=== PATIENT | female | born 1975 | race Caucasian/White ===

== ENCOUNTER → 2016-10-20 | Outpatient (REF) | payer OTHER ==
[2016-10-20 14:07] LABS: BLOOD UREA NITROGEN 12 MG/DL (7-18); CREATININE FOR GFR 1.04 MG/DL (0.55-1.02); GLOMERULAR FILTRATION RATE > 60.0 (>58)
[2016-10-26 14:12] LABS: Lyme Disease IgG/IgM Antibodie <0.91 ISR (0.00-0.90); Lyme Disease IgM Ab Quantitati <0.80 index (0.00-0.79); SJOGREN'S ANTI SS-A <0.2 AI (0.0-0.9); SJOGREN'S ANTI SS-B <0.2 AI (0.0-0.9)
== END ==
LOC: M LABNEURO 12:38
PROVIDERS: ATTEND Psychiatry & Neurology Neurology
DX: G35 Multiple sclerosis (principal); N18.9 Chronic kidney disease, unspecified

== ENCOUNTER → 2016-12-29 | Outpatient (CLI) | payer OTHER ==
[~2016-12-29] MED LIST: LIDOCAINE 1% SDV INJ 30 ML VIAL As Ordered ONE; MIDAZOLAM INJ 2 MG/2 ML VIAL (J2250) As Ordered ONE; fentaNYL 100 MCG/2 ML INJECTION (J3010) As Ordered ONE
[2016-12-29 20:02] LABS: GLUCOSE CSF 52 MG/DL (40-75)
[2016-12-29 20:06] LABS: APPEARANCE, CSF CLEAR (CLEAR); COLOR, CSF COLORLESS (COLORLESS); CSF DIFF IF INDICATED? NO (NO); CSF TUBE# CELL CNT TUBE 3; RBC CSF AUTO 1 /mm3 (0-0); WBC CSF AUTO 1 /mm3 (0-10)
[2016-12-29 20:08] LABS: CSF DILUENT LOT # 6277
[2016-12-30 09:54] LABS: CSF GROUP B STREP NEGATIVE (NEGATIVE); CSF H. INFLUENZA NEGATIVE (NEGATIVE); CSF N MENINGITIDIS ACYW135 NEGATIVE (NEGATIVE); CSF STREP PNUEMO NEGATIVE (NEGATIVE)
--- NOTE | 2017-01-12 00:11 | ECWPNPC ---
PATIENT NAME: KASI GURROLA : 1975 GENDER: FEMALE VISIT DATE: 12/29/2016 DISCHARGE DATE: 12/29/16 1008 VISIT LOCKED DATE TIME: PHYSICIAN: ONEAL GONCALVES RESOURCE: ONEAL GONCALVES REASON FOR APPOINTMENT 1. SPINAL TAP MS PROTOCOL CURRENT MEDICATIONS TAKING KEPPRA 250 MG TABLET ORALLY BID TAKING LAMICTAL 100 MG TABLET 2 TABLETS ORALLY TWICE A DAY TAKING LEXAPRO 5 5 MG TABLET ORAL TAKING ATIVAN 0.5 0.5MG TABLET ORAL TAKING KLONOPIN 0.5 MG TABLET 1 TABLET ORALLY TWICE A DAY TAKING VALACYCLOVIR HCL 1 GM TABLET 2 TABLETS ORALLY EVERY 12 HRS NOT-TAKING FLUTICASONE PROPIONATE 50 MCG/ACT SUSPENSION 2 SPRAY IN EACH NOSTRIL NASALLY ONCE A DAY NOT-TAKING PSEUDOEPHEDRINE-GUAIFENESIN ER 60-600 MG TABLET EXTENDED RELEASE 12 HOUR 1 TABLET NEEDED ORALLY TWICE A DAY PAST MEDICAL HISTORY ANXIETY ALLERGIES LEVOQUIN: RASH: ALLERGY SULFA: RASH/SWELLING: ALLERGY VITAL SIGNS WT 146.6 LBS, HT 62 IN, BMI 26.81 INDEX, BP 113/71 MM HG, HR 60 /MIN, RR 18 /MIN, TEMP 99.0 F, OXYGEN SAT % 98%, NA INITIALS AW 1341. ASSESSMENTS MS PROTOCOL. TREATMENT OTHERS NOTES: SPINAL TAP WITH IV SEDATION - PLEASE SEE MEDITECH. DISPOSITION & COMMUNICATION FOLLOW UP CALL NEEDED/ FUP WITH NEUROLOGIST ELECTRONICALLY SIGNED BY ONEAL GONCALVES MD ON 01/11/2017 AT 07:19 PM EDT DISCLAIMER : THIS IS A VISIT SUMMARY EXTRACTED FROM THE [employer] CHART. IT IS NOT A COPY OF THE [employer] PROGRESS NOTE. MTDD
== END ==
LOC: M PAIN 13:30
PROVIDERS: ATTEND Anesthesiology
DX: G35 Multiple sclerosis (principal)
CPT/HCPCS: 36415; 62270; 82784; 82945; 83916; 84157; 87015; 87070; 87102; 87205; 87252; 87802; 87899; 88108; 88313; 89050; 99152; 99153; J2250; J3010

== ENCOUNTER → 2017-05-02 | Outpatient (REF) | payer OTHER | LOC: M SFHCLERA 12:38 | PROVIDERS: ATTEND Nurse Practitioner Family | DX: R30.0 Dysuria (principal) ==

== ENCOUNTER → 2017-06-25 | Outpatient (REF) | payer OTHER ==
[2017-06-25 20:49] LABS: CHLAMYDIA DNA AMPLIFICATION NEGATIVE (NEGATIVE); GC DNA AMPLIFICATION NEGATIVE (NEGATIVE)
== END ==
LOC: M SFHCLERA 13:11
DX: R39.9 Unspecified symptoms and signs involving the genitourinary system (principal)

== ENCOUNTER → 2017-09-01 | Outpatient (REF) | payer OTHER ==
[2017-09-01 16:15] LABS: FREE T4 0.93 NG/DL (0.76-1.46)
[2017-09-03 10:31] LABS: THYROID PEROXIDASE ANTIBODY < 28.0 U/ML (<60.0); TOTAL T3 73.1 NG/DL (60.0-181.0)
== END ==
LOC: M LABDRAW1 14:28
DX: E03.9 Hypothyroidism, unspecified (principal)